=== PATIENT | female | born 1955 | race Caucasian/White ===

== ENCOUNTER 2016-09-13 23:16 | Observation (INO) | payer OTHER ==
[~2016-09-13] VITALS: Ht 160 cm; Wt 77.0 kg
[~2016-09-13 23:16] MED LIST: AMBIEN10 MG PO; AMBIEN5 MG PO; ATARAX,VISTARIL25 MG PO; ATIVAN PO; ATIVAN1 MG PO; Ambien PO; Ativan PO; BRINTELLIX5 MG PO; BUSPAR5 MG PO; Ceftin PO; Cipro PO; Colace PO; DESYREL100 MG PO; DILAUDID2 MG PO; ELIQUIS5 MG PO; FAMOTIDINE20 MG PO; FLAGYL500 MG PO; Flagyl PO; GABAPENTIN300 MG; GABAPENTIN300 MG PO; HYDROCODON-ACE1 EAC2; HYDROMORPHONE HC4 MG PO; IBUPROFEN800 MG; LIPITOR20 MG PO; LISINOPRIL20 MG PO; LOPRESSOR25 MG PO; LORAZEPAM1 MG PO; METOPROLOL TART25 MG PO; MIRTAZAPINE15 MG PO; MOBIC15 MG PO; Miralax, Glycolax PO; NEURONTIN PO; NEURONTIN100 MG PO; NEURONTIN300 MG PO; NORVASC10 MG PO; Norvasc PO; ONDANSETRON HCL8 MG; ONDANSETRON ODT4 MG PO; OXYCODONE5 MG PO; PANTOPRAZOLE SO20 MG PO; PANTOPRAZOLE SO40 MG PO; PHENERGAN25 MG/ML PO; PRILOSEC40 MG PO; PROMETHAZINE HC25 M1 PO; PROTONIX PO; PROTONIX20 MG PO; PROTONIX40 MG PO; Pen-Vee K,Veetids PO; Protonix PO; QUETIAPINE FUM300 MG; REGLAN10 MG PO; SEROQUEL XR400 MG PO; SEROQUEL100 MG PO; SEROQUEL50 MG PO; SEROquel PO; SERTRALINE HCL100 MG PO; SYSTANE 0.3-0.1 EACH BOTH EYES; SYSTANE ULTRA 015 ML RIGHT EYE; TRAMADOL HCL50 MG PO; VICODIN 5-3001 EACH PO; XANAX0.5 MG PO; XIFAXAN550 MG PO; ZALEPLON10 MG PO; ZESTRIL10 MG PO; ZESTRIL40 M1 PO; ZOFRAN4 MG PO; ZOLOFT PO; ZOLOFT100 MG PO; ZOLOFT25 MG PO; ZOLPIDEM TARTRAT5 MG PO; zoloft PO
[2016-09-13] MEDS ORDERED: SERTRALINE HCL100 MG PO (23:39)
[2016-09-13] MEDS ORDERED: AMBIEN10 MG PO (23:40)
[2016-09-13] MEDS ORDERED: BUSPAR15 MG PO (23:41)
[2016-09-13] MEDS ORDERED: GABAPENTIN300 MG PO (23:42)
[2016-09-13] MEDS ORDERED: ATORVASTATIN CA40 MG PO (23:42)
[2016-09-13] MEDS ORDERED: AMLODIPINE BESYL5 MG PO (23:42)
[2016-09-13 23:58] LABS: ADD MIUA? YES; BILIRUBIN SMALL; BLOOD NEGATIVE; COLOR DK YELLOW ((YELLOW)); GLUCOSE (STRIP) NEGATIVE; KETONES TRACE; LEUKOCYTES MODERATE; NITRITE NEGATIVE; PROTEIN (STRIP) TRACE; SPECIFIC GRAVITY 1.026 (1.000-1.030)
[2016-09-14 00:14] LABS: COCAINE NEGATIVE (150 ng/mL); METHAMPHETAMINE NEGATIVE (500 ng/mL); OPIATES (MORPHINE) NEGATIVE (100 ng/mL); PHENCYCLIDINE NEGATIVE (25 ng/mL); THC CANNABINOIDS PRESUMPTIVE POSITIVE (50 ng/mL)
[2016-09-14 00:16] LABS: AMPHETAMINE NEGATIVE (500 ng/mL)
[2016-09-14 00:17] LABS: BENZODIAZEPINES PRESUMPTIVE POSITIVE (150 ng/mL); METHADONE NEGATIVE (200 ng/mL); TRICYCLIC ANTIDEPRESSANTS PRESUMPTIVE POSITIVE (300 ng/mL)
[2016-09-14 00:18] LABS: HEMATOCRIT 40.3 % (36.0-46.0); MCH 30.4 PG (29.0-34.0); MCHC 33.3 G/DL (30.0-36.0); MCV 91.4 FL (83-99); MEAN PLAT.VOLUME 9.1 uM^3 (9.5-12.4); PLATELET COUNT 256 K/uL (156-360); RBC DIS.WIDTH-CV 14.9 % (11.8-14.6); RBC DIS.WIDTH-SD 48.2 % (39-53); RED BLOOD COUNT 4.41 M/uL (3.80-5.20); WHITE BLOOD COUNT 9.9 K/uL (4.1-10.2)
[2016-09-14 00:19] LABS: ADD MEDTOX COMMENT Y; BARBITURATES NEGATIVE (200 ng/mL); INTERNAL CONTROLS VALID? YES; OXYCODONE PRESUMPTIVE POSITIVE (100 ng/mL); PROPOXYPHENE NEGATIVE (300 ng/mL)
[2016-09-14 00:29] LABS: RED BLOOD CELLS 0-5 /HPF (0-5)
[2016-09-14 00:30] LABS: BACTERIA 1+; CASTS NONE SEEN /LPF; CRYSTALS PRESENT; EPITHELIAL CELLS 2+; MUCUS RARE; UCUL ADDED? NO
[2016-09-14 00:31] LABS: CALCIUM OXALATE CRYSTALS 1+
[2016-09-14 00:35] LABS: CHLORIDE 109 mEq/L (99-109)
[2016-09-14 00:36] LABS: POTASSIUM 3.9 mEq/L (3.7-5.4); SODIUM 139 mEq/L (136-147)
[2016-09-14 00:37] LABS: GLUCOSE 99 mg/dL (70-99)
[2016-09-14 00:39] LABS: ANION GAP 12 MEQ/L (2-14)
[2016-09-14 00:40] LABS: SERUM ETHYL ALCOHOL < 10 mg/dL
[2016-09-14 00:41] LABS: GFR ESTIMATE (CALCULATED) > 59 mL/min/
[2016-09-14 00:42] LABS: UREA NITROGEN (BUN) 11 mg/dL (9-23)
[2016-09-14 00:49] LABS: BENZODIAZEPINES QUANT VALUE 0 NG/ML
[2016-09-14 00:51] LABS: BENZODIAZEPINES, URINE SCREEN Negative (200 ng/mL)
[2016-09-14 01:35] LABS: SALICYLATE < 5.0 MG/DL (15-30)
[2016-09-14 04:08] LABS: HDL CHOLESTEROL 32 MG/DL (Desirable>=50); LDL CHOLESTEROL 40 mg/dL (Desirable<100); NON-HDL CHOLESTEROL 69 mg/dL (Desirable<160); TOTAL CHOLESTEROL 101 mg/dL (Desirable<200); TRIGLYCERIDES 144 MG/DL (Normal: <150)
[2016-09-14 04:29] VITALS: BP 139/88
[2016-09-14 08:00] VITALS: BP 124/74
[2016-09-14 12:00] VITALS: BP 126/78
[2016-09-15 18:39] LABS: Estimated Average Glucose 114 mg/dL (70-123); HEMOGLOBIN A1c (GLYCOHEMOGLOB) 5.6 % HGB (Below 5.7)
== END 2016-09-14 17:04 | disposition home or self-care (01) ==
LOC: EME 23:16 → EDOF 09-14 02:52 → 5WEST 09-14 02:52 → EDOF 09-14 02:52 → 5WEST 09-14 03:49
PROVIDERS: Physician Assistant
DX: E86.0 Dehydration (principal); R41.82 Altered mental status, unspecified; R26.9 Unspecified abnormalities of gait and mobility; R47.9 Unspecified speech disturbances; N39.0 Urinary tract infection, site not specified; F32.9 Major depressive disorder, single episode, unspecified; F19.10 Other psychoactive substance abuse, uncomplicated; Z88.6 Allergy status to analgesic agent; Z91.041 Radiographic dye allergy status; Z82.0 Family history of epilepsy and other diseases of the nervous system; Z82.49 Family history of ischemic heart disease and other diseases of the circulatory system
CPT/HCPCS: 70450; 70551; 80048; 80061; 81003; 83036; 84999; 85027; 93880; 99281; 99285; G0378; G0480; J0696; J7030; J7050

== ENCOUNTER 2017-02-16 08:04 | Day surgery (SDC) | payer OTHER ==
[~2017-02-16] VITALS: Ht 162.6 cm; Wt 72.7 kg
[~2017-02-16 08:04] MED LIST changes: +AMLODIPINE BESYL5 MG PO; +ATORVASTATIN CA40 MG PO; +BUSPAR15 MG PO; +PROLIA60 MG/1 ML SC
[2017-02-16] MEDS ORDERED: LIPITOR20 MG PO (08:17)
== END 2017-02-16 09:09 | disposition home or self-care (01) ==
LOC: PAIN 08:04 → SDC 08:30 → PAIN 09:09
DX: M47.814 Spondylosis without myelopathy or radiculopathy, thoracic region (principal); M54.6 Pain in thoracic spine; M47.812 Spondylosis without myelopathy or radiculopathy, cervical region; M47.816 Spondylosis without myelopathy or radiculopathy, lumbar region; M81.0 Age-related osteoporosis without current pathological fracture; I10 Essential (primary) hypertension; K21.9 Gastro-esophageal reflux disease without esophagitis; F41.8 Other specified anxiety disorders; G62.9 Polyneuropathy, unspecified; I35.0 Nonrheumatic aortic (valve) stenosis; E66.9 Obesity, unspecified; Z68.27 Body mass index [BMI] 27.0-27.9, adult; R01.1 Cardiac murmur, unspecified; E78.5 Hyperlipidemia, unspecified; E21.3 Hyperparathyroidism, unspecified; R73.03 Prediabetes; Z86.718 Personal history of other venous thrombosis and embolism; Z79.01 Long term (current) use of anticoagulants; Z79.891 Long term (current) use of opiate analgesic; Z79.899 Other long term (current) drug therapy; Z82.49 Family history of ischemic heart disease and other diseases of the circulatory system; Z82.3 Family history of stroke; Z83.3 Family history of diabetes mellitus; Z80.0 Family history of malignant neoplasm of digestive organs
CPT/HCPCS: J1030; J2250; J3010; S0020

== ENCOUNTER 2017-02-23 08:44 | Day surgery (SDC) | payer OTHER ==
[~2017-02-23] VITALS: Ht 162.6 cm; Wt 72.7 kg
[~2017-02-23 08:44] MED LIST changes: +ERGOCALCIF50000 UNIT PO; +LIPITOR40 MG PO; +NORVASC5 MG PO; +OXYCODONE HCL5 MG PO; +PEPCID AC10 MG PO; +SALINE NOSE SPR45 M1 BOTH NARES; +SYSTANE LIQUID15 ML BOTH EYES
== END 2017-02-23 10:45 | disposition home or self-care (01) ==
LOC: PAIN 08:44 → SDC 09:00 → PAIN 09:00
DX: M47.814 Spondylosis without myelopathy or radiculopathy, thoracic region (principal); G62.9 Polyneuropathy, unspecified; M81.0 Age-related osteoporosis without current pathological fracture; Z98.890 Other specified postprocedural states; Z86.718 Personal history of other venous thrombosis and embolism; K21.9 Gastro-esophageal reflux disease without esophagitis; R01.1 Cardiac murmur, unspecified; E66.9 Obesity, unspecified; E78.5 Hyperlipidemia, unspecified; E21.3 Hyperparathyroidism, unspecified; I10 Essential (primary) hypertension; Z82.49 Family history of ischemic heart disease and other diseases of the circulatory system; Z82.3 Family history of stroke; Z83.49 Family history of other endocrine, nutritional and metabolic diseases; Z88.6 Allergy status to analgesic agent; Z88.5 Allergy status to narcotic agent; Z91.041 Radiographic dye allergy status
CPT/HCPCS: J1030; J2250; J2405; J3010; S0020

== ENCOUNTER 2017-05-21 13:33 | Day surgery (SDC) | payer OTHER ==
[~2017-05-21] VITALS: Ht 160 cm; Wt 84.4 kg
[~2017-05-21 13:33] MED LIST changes: +LASIX20 MG PO; +REMERON15 M2 PO; +ZOFRAN8 MG PO
== END 2017-05-21 15:30 | disposition home or self-care (01) ==
LOC: PAIN 13:33 → SDC 14:00 → PAIN 15:30
DX: M47.814 Spondylosis without myelopathy or radiculopathy, thoracic region (principal); G89.29 Other chronic pain; M54.6 Pain in thoracic spine; M48.54XA Collapsed vertebra, not elsewhere classified, thoracic region, initial encounter for fracture; M47.816 Spondylosis without myelopathy or radiculopathy, lumbar region; G62.9 Polyneuropathy, unspecified; I35.0 Nonrheumatic aortic (valve) stenosis; K21.9 Gastro-esophageal reflux disease without esophagitis; E21.3 Hyperparathyroidism, unspecified; I10 Essential (primary) hypertension; E78.5 Hyperlipidemia, unspecified; M81.0 Age-related osteoporosis without current pathological fracture; R73.03 Prediabetes; Z86.718 Personal history of other venous thrombosis and embolism; Z86.14 Personal history of Methicillin resistant Staphylococcus aureus infection; Z87.891 Personal history of nicotine dependence; Z79.01 Long term (current) use of anticoagulants; Z79.891 Long term (current) use of opiate analgesic
CPT/HCPCS: J1030; J2250; J2405; J3010; S0020

== ENCOUNTER 2017-06-16 07:05 | Day surgery (SDC) | payer OTHER ==
[~2017-06-16] VITALS: Ht 160 cm; Wt 84.8 kg
[~2017-06-16 07:05] MED LIST changes: +ACID REDUCER10 MG PO
== END 2017-06-16 08:55 | disposition home or self-care (01) ==
LOC: PAIN 07:05 → SDC 07:30 → PAIN 07:30
DX: M47.814 Spondylosis without myelopathy or radiculopathy, thoracic region (principal); M54.6 Pain in thoracic spine; G89.29 Other chronic pain; M47.812 Spondylosis without myelopathy or radiculopathy, cervical region; M47.816 Spondylosis without myelopathy or radiculopathy, lumbar region; I10 Essential (primary) hypertension; E21.3 Hyperparathyroidism, unspecified; K21.9 Gastro-esophageal reflux disease without esophagitis; M81.0 Age-related osteoporosis without current pathological fracture; Z86.718 Personal history of other venous thrombosis and embolism; I35.0 Nonrheumatic aortic (valve) stenosis; G62.9 Polyneuropathy, unspecified; E66.9 Obesity, unspecified; Z68.33 Body mass index [BMI] 33.0-33.9, adult; R73.03 Prediabetes; Z79.01 Long term (current) use of anticoagulants; Z79.891 Long term (current) use of opiate analgesic
CPT/HCPCS: J1030; J1885; J2250; J3010; S0020

== ENCOUNTER 2017-09-20 12:00 | Inpatient (IN) | payer OTHER ==
[~2017-09-20] VITALS: Ht 161.3 cm; Wt 88.9 kg
[~2017-09-20 12:00] MED LIST changes: -PEPCID AC10 MG PO; +PEPCID AC20 MG PO
[2017-09-20 14:17] LABS: HEMATOCRIT 39.1 % (36.0-46.0); HEMOGLOBIN 13.3 G/DL (11.9-15.5); MCH 29.8 PG (29.0-34.0); MCV 87.5 FL (83-99); PLATELET COUNT 216 K/uL (156-360); RBC DIS.WIDTH-CV 14.8 % (11.8-14.6); RBC DIS.WIDTH-SD 47.7 % (39-53); RED BLOOD COUNT 4.47 M/uL (3.80-5.20); WHITE BLOOD COUNT 12.2 K/uL (4.1-10.2)
[2017-09-20 15:00] LABS: ALBUMIN 4.1 g/dL (3.2-4.8); CHLORIDE 110 mEq/L (99-109); POTASSIUM 3.8 mEq/L (3.7-5.4); SODIUM 138 mEq/L (136-147)
[2017-09-20 15:02] LABS: GLUCOSE 106 mg/dL (70-99); TOTAL PROTEIN 6.9 g/dL (6.4-8.3)
[2017-09-20 15:04] LABS: TOTAL BILIRUBIN 0.6 mg/dL (0.0-1.0)
[2017-09-20 15:06] LABS: ALKALINE PHOSPHATASE 119 IU/L (3-129); CREATININE 0.7 mg/dL (0.6-1.3); GFR ESTIMATE (CALCULATED) > 59 mL/min/
[2017-09-20 15:07] LABS: UREA NITROGEN (BUN) 8 mg/dL (9-23)
[2017-09-20 15:08] LABS: AST (GOT) 14 IU/L (2-34)
[2017-09-20 15:09] LABS: ALT (GPT) 9 IU/L (3-49)
[2017-09-20] MEDS ORDERED: SERTRALINE HCL50 MG PO (16:05)
[2017-09-20] MEDS ORDERED: RANITIDINE HCL150 MG PO (16:09)
[2017-09-20] MEDS ORDERED: BUSPAR15 MG PO (16:09)
[2017-09-20] MEDS ORDERED: TIZANIDINE HCL2 MG PO (16:09)
[2017-09-20 17:09] VITALS: BP 155/84
[2017-09-21] VITALS (7 sets, daily range): BP systolic 115–135; BP diastolic 62–98
[2017-09-21 12:02] LABS: CHLORIDE 109 MEQ/L (99-109); CREATININE 0.7 MG/DL (0.6-1.3); GFR ESTIMATE (CALCULATED) > 59 mL/min/; GLUCOSE 120 mg/dL (70-99); POTASSIUM 3.8 MEQ/L (3.7-5.4); SODIUM 143 MEQ/L (136-147); UREA NITROGEN (BUN) 7 mg/dL (9-23)
[2017-09-22 03:37] VITALS: BP 117/62
[2017-09-22 07:19] LABS: BASOPHIL COUNT 0.1 K/uL (0-0.1); EOSINOPHIL (%) 2.9 % (0-5); EOSINOPHIL COUNT 0.2 K/uL (0-0.3); HEMOGLOBIN 13.2 G/DL (11.9-15.5); IMMATURE GRANULOCYTE (%) 0.5 % (0.0-0.7); LYMPHOCYTE COUNT 1.9 K/uL (1.0-2.8); MCH 28.5 PG (29.0-34.0); MCHC 32.2 G/DL (30.0-36.0); MCV 88.6 FL (83-99); MONOCYTE (%) 9.3 % (3-12); MONOCYTE COUNT 0.5 K/uL (0-0.8); NEUTROPHIL (%) 54.3 % (45-76); NEUTROPHIL COUNT 3.1 K/uL (1.8-6.4); PLATELET COUNT 203 K/uL (156-360); RBC DIS.WIDTH-CV 14.4 % (11.8-14.6); RBC DIS.WIDTH-SD 46.3 % (39-53); RED BLOOD COUNT 4.63 M/uL (3.80-5.20); WHITE BLOOD COUNT 5.8 K/uL (4.1-10.2)
[2017-09-22 07:34] LABS: ALBUMIN 3.8 G/DL (3.2-4.8); ALKALINE PHOSPHATASE 110 IU/L (3-129); ALT (GPT) 9 IU/L (3-49); AST (GOT) 14 IU/L (2-34); CHLORIDE 111 MEQ/L (99-109); CREATININE 0.5 MG/DL (0.6-1.3); GFR ESTIMATE (CALCULATED) > 59 mL/min/; GLUCOSE 105 mg/dL (70-99); POTASSIUM 3.9 MEQ/L (3.7-5.4); SODIUM 144 MEQ/L (136-147); TOTAL BILIRUBIN 0.4 MG/DL (0.0-1.0); TOTAL PROTEIN 6.3 G/DL (6.4-8.3); UREA NITROGEN (BUN) 7 mg/dL (9-23)
[2017-09-22 07:56] VITALS: BP 149/85
[2017-09-22 11:48] VITALS: BP 163/95
[2017-09-22 15:54] VITALS: BP 117/60
[2017-09-22 19:35] VITALS: BP 123/64
[2017-09-22 23:34] VITALS: BP 112/63
[2017-09-23 07:28] VITALS: BP 129/69
[2017-09-23 08:40] VITALS: BP 130/68
[2017-09-23 08:57] LABS: BASOPHIL (%) 0.9 % (0-1); BASOPHIL COUNT 0.1 K/uL (0-0.1); EOSINOPHIL (%) 3.1 % (0-5); EOSINOPHIL COUNT 0.2 K/uL (0-0.3); HEMATOCRIT 41.5 % (36.0-46.0); HEMOGLOBIN 13.8 G/DL (11.9-15.5); IMMATURE GRANULOCYTE (%) 1.1 % (0.0-0.7); LYMPHOCYTE (%) 25.7 % (15-42); LYMPHOCYTE COUNT 1.4 K/uL (1.0-2.8); MCH 29.2 PG (29.0-34.0); MCHC 33.3 G/DL (30.0-36.0); MCV 87.9 FL (83-99); MONOCYTE COUNT 0.5 K/uL (0-0.8); NEUTROPHIL (%) 60.2 % (45-76); NEUTROPHIL COUNT 3.3 K/uL (1.8-6.4); PLATELET COUNT 161 K/uL (156-360); RBC DIS.WIDTH-CV 14.4 % (11.8-14.6); RBC DIS.WIDTH-SD 46.5 % (39-53); RED BLOOD COUNT 4.72 M/uL (3.80-5.20); WHITE BLOOD COUNT 5.5 K/uL (4.1-10.2)
[2017-09-23 09:15] LABS: ALBUMIN 3.7 G/DL (3.2-4.8); ALKALINE PHOSPHATASE 102 IU/L (3-129); ALT (GPT) 10 IU/L (3-49); AST (GOT) 15 IU/L (2-34); CHLORIDE 109 MEQ/L (99-109); CREATININE 0.6 MG/DL (0.6-1.3); GFR ESTIMATE (CALCULATED) > 59 mL/min/; GLUCOSE 108 mg/dL (70-99); SODIUM 142 MEQ/L (136-147); TOTAL BILIRUBIN 0.4 MG/DL (0.0-1.0); UREA NITROGEN (BUN) 6 mg/dL (9-23)
[2017-09-23] MEDS ORDERED: DICLOXACILLIN500 MG PO (11:44)
[2017-09-23] MEDS ORDERED: ROXICODONE5 MG PO (11:44)
== END 2017-09-23 12:40 | disposition home or self-care (01) | DRG 122 ==
LOC: EME 12:00 → EDOF 16:13 → 2EASTP 16:13 → ENRESERV 16:15 → 2EASTP 17:05
PROVIDERS: Hospitalist; Nurse Practitioner Family; Student in an Organized Health Care Education/Training Program
DX: H05.012 Cellulitis of left orbit (principal); H04.302 Unspecified dacryocystitis of left lacrimal passage; I10 Essential (primary) hypertension; E78.5 Hyperlipidemia, unspecified; K21.9 Gastro-esophageal reflux disease without esophagitis; E53.8 Deficiency of other specified B group vitamins; F60.9 Personality disorder, unspecified; Z86.718 Personal history of other venous thrombosis and embolism; Z79.01 Long term (current) use of anticoagulants; F17.210 Nicotine dependence, cigarettes, uncomplicated; Z86.73 Personal history of transient ischemic attack (TIA), and cerebral infarction without residual deficits; Z86.14 Personal history of Methicillin resistant Staphylococcus aureus infection; Z87.19 Personal history of other diseases of the digestive system; Z90.49 Acquired absence of other specified parts of digestive tract; Z86.19 Personal history of other infectious and parasitic diseases
CPT/HCPCS: 70480; 80048; 80053; 85025; 85027; 87040; 87070; 87075; 87077; 87147; 87186; 87205; 90686; 99281; 99285; J0295; J1170; J1956; J2270; J2405; J3010; J3370; J7030; J7050

== ENCOUNTER 2017-10-01 15:42 | Emergency (ER) | payer OTHER ==
[~2017-10-01] VITALS: Ht 160 cm; Wt 87.7 kg
[~2017-10-01 15:42] MED LIST changes: +DICLOXACILLIN500 MG PO; +RANITIDINE HCL150 MG PO; +ROXICODONE5 MG PO; +SERTRALINE HCL50 MG PO; +TIZANIDINE HCL2 MG PO
[2017-10-01 16:35] LABS: HEMATOCRIT 43.2 % (36.0-46.0); HEMOGLOBIN 14.5 G/DL (11.9-15.5); MCH 29.1 PG (29.0-34.0); MCHC 33.6 G/DL (30.0-36.0); MCV 86.7 FL (83-99); RBC DIS.WIDTH-CV 14.6 % (11.8-14.6); RBC DIS.WIDTH-SD 46.6 % (39-53); RED BLOOD COUNT 4.98 M/uL (3.80-5.20); WHITE BLOOD COUNT 8.5 K/uL (4.1-10.2)
[2017-10-01 16:39] LABS: PLATELET COUNT 282 K/uL (156-360)
[2017-10-01 16:51] LABS: CHLORIDE 108 mEq/L (99-109); POTASSIUM 3.7 mEq/L (3.7-5.4); SODIUM 143 mEq/L (136-147)
[2017-10-01 16:53] LABS: GLUCOSE 116 mg/dL (70-99)
[2017-10-01 16:57] LABS: CREATININE 0.8 mg/dL (0.6-1.3); GFR ESTIMATE (CALCULATED) > 59 mL/min/
[2017-10-01 16:58] LABS: UREA NITROGEN (BUN) 9 mg/dL (9-23)
[2017-10-01 16:59] LABS: TROP-I INTERPRETATION NEGATIVE; TROPONIN-I 0.01 ng/mL (0.0-0.30)
[2017-10-01 20:09] VITALS: BP 138/88
== END 2017-10-01 20:11 | disposition home or self-care (01) ==
LOC: EME 15:42
DX: I10 Essential (primary) hypertension (principal); R51 Headache; E86.0 Dehydration; R07.9 Chest pain, unspecified; E78.5 Hyperlipidemia, unspecified; Z86.718 Personal history of other venous thrombosis and embolism; Z86.73 Personal history of transient ischemic attack (TIA), and cerebral infarction without residual deficits; Z90.49 Acquired absence of other specified parts of digestive tract; Z87.891 Personal history of nicotine dependence; Z88.5 Allergy status to narcotic agent; Z88.6 Allergy status to analgesic agent; Z91.041 Radiographic dye allergy status
CPT/HCPCS: 71046; 80048; 84484; 85027; 93005; 99281; 99284; J2060; J7040